=== PATIENT | female | born 1930 | race African-American/Black ===

== ENCOUNTER 2018-05-16 18:52 | Emergency (ER) | payer OTHER ==
[~2018-05-16] VITALS: Ht 177.8 cm; Wt 96.0 kg
[2018-05-16] MEDS ORDERED: SODIUM CHLORIDE 0.9% 1,000 ML IV ONE (19:28)
[2018-05-16 20:23] LABS: BASOPHILS % 0.7 % (0.0-2.0); HEMATOCRIT. 35.9 % (36.0-48.0); LYMPHOCYTES % 36.7 % (20.0-50.0); MEAN CORPUSCULAR HEMOGLOBIN 28.9 pg (28.0-32.0); MEAN CORPUSCULAR VOLUME 86.5 fL (81.0-99.0); MEAN PLATELET VOLUME 8.1 fl (7.4-10.4); MONOCYTES % 9.8 % (2.0-8.0); NEUTROPHILS % 49.8 % (40.0-76.0); PLATELET 233 x1000/uL (130-400); RED BLOOD CELL COUNT 4.15 mill/uL (4.2-5.4); RED CELL DISTRIBUTION WIDTH 14.7 % (11.6-14.6)
[2018-05-16 20:27] LABS: CHLORIDE 104 mEq/L (98-107)
[2018-05-16 23:21] VITALS: BP 153/81
== END 2018-05-16 23:23 | disposition home or self-care (01) ==
LOC: ER 18:52
DX: R55 Syncope and collapse (principal); I10 Essential (primary) hypertension
CPT/HCPCS: 36415; 71045; 80053; 84484; 85025; 93005; 96360; 96361; 99285; J7030